=== PATIENT | female | born 1935 | race Caucasian/White ===

== ENCOUNTER 2020-07-24 23:58 | Emergency (ER) | payer MEDICARE ==
[~2020-07-24] VITALS: Ht 160 cm; Wt 63.5 kg
--- NOTE | 2020-07-25 | NUR ---
Dr. Mendez at bedside for MSE.
[2020-07-25] MEDS ORDERED: ATEN25TA PO (00:06)
[2020-07-25 00:22] LABS: BASOPHILS % (AUTO) 0.4 % (0.0-2.0); EOSINOPHILS # (AUTO) 0.1 K/uL (0.0-0.7); EOSINOPHILS % (AUTO) 1.4 % (0.0-7.0); HEMATOCRIT 38.7 % (31.2-41.9); LYMPHOCYTES # (AUTO) 1.3 K/uL (20.0-40.0); LYMPHOCYTES % (AUTO) 16.9 % (20.5-51.5); MEAN CORPUSCULAR HEMOGLOBIN 28.5 uug (24.7-32.8); MEAN CORPUSCULAR HGB CONC 34 g/dL (32.3-35.6); MEAN CORPUSCULAR VOLUME 85.1 fL (75.5-95.3); MONOCYTES # (AUTO) 0.7 K/uL (2.0-10.0); MONOCYTES % (AUTO) 9.5 % (0.0-11.0); NEUTROPHILS # (AUTO) 5.5 K/uL (1.8-8.9); NEUTROPHILS % (AUTO) 71.8 % (38.5-71.5); PLATELET COUNT (AUTO) 169 K/uL (179-408); RED BLOOD CELL COUNT(AUTO) 4.55 MIL/uL (3.63-4.92); WHITE BLOOD COUNT (AUTO) 7.6 K/uL (3.8-11.8)
[2020-07-25 00:30] LABS: CREATININE 0.7 mg/dL (0.6-1.3); POTASSIUM 3.7 mmol/L (3.5-5.1)
--- NOTE | 2020-07-25 00:30 | NUR ---
Xray at bedside.
[2020-07-25] MEDS ORDERED: HYDROCODONE/APAP 5-325MG TABLET PO ONE (01:00)
[2020-07-25] MEDS ORDERED: IBUPROFEN 600 MG TABLET PO ONE (01:00)
[2020-07-25] MEDS ORDERED: IBUPROFEN 600 MG TABLET ONE (01:04)
[2020-07-25] MEDS ORDERED: HYDROCODONE/APAP 5-325MG TABLET ONE (01:05)
--- NOTE | 2020-07-25 01:05 | NUR ---
Ultrasound at bedside.
--- NOTE | 2020-07-25 01:40 | NUR ---
Patient discharged to home in stable condition. Written and verbal after care instructions given. Patient verbalizes understanding of instructions. Stressed follow up or return to ER for worsening s/s. Patient out of ER with steady gait, no acute signs of distress, VSS, all belongings taken, instructed not to drive, provided copies of diagnostic procedures, pt to be driven home via private vehicle by son.
[2020-07-25 01:42] VITALS: BP 150/90
== END 2020-07-25 01:42 | disposition home or self-care (01) ==
LOC: ER 07-25 00:02
DX: M79.89 Other specified soft tissue disorders (principal); M19.041 Primary osteoarthritis, right hand; I10 Essential (primary) hypertension; Z79.899 Other long term (current) drug therapy
CPT/HCPCS: 36415; 71045; 73130; 85025; 85730; A4663